=== PATIENT | female | born 1990 | race Caucasian/White ===

== ENCOUNTER 2019-10-25 18:51 | Inpatient (IN) ==
[2019-10-25] MEDS ORDERED: ONDANSETRON 4 MG/2 ML VIAL IV PRN (19:02)
[2019-10-25] MEDS ORDERED: BUTORPHANOL 2 MG/ML VIAL IV PRN (19:04)
[2019-10-25 19:44] LABS: Basophils % 0.4 % (0.0-0.8); Eosinophils # 0.2 10*3/uL (0.0-0.87); Eosinophils % 1.8 % (0.00-10.9); Hematocrit 39.1 VOL% (35.7-47.0); Hemoglobin 12.7 GM/DL (12.0-16.0); Immature Granulocytes % 0.7 %; Immature Granulocytes Absolute 0.08 #; Lymphocytes # 2.3 10*3/uL (1.4-4.0); Lymphocytes % 20.7 % (21.3-54.2); Mean Corpuscular HGB Conc 32.5 GM/DL (32-36); Mean Corpuscular Volume 91.4 FL (87-102); Mean Platelet Volume 10.2 FL (9.6-12.0); Monocytes % 7.5 % (1.7-12.7); Neutrophils % 68.9 % (38.7-73.9); Platelet Count 293 T/CUMM (130-400); Red Blood Count 4.28 MC/CUMM (3.8-5.5); Red Cell Distribution Width 13.5 % (9.3-17.3); White Blood Count 11.1 T/CUMM (4-12)
[2019-10-25 20:03] LABS: Alanine Aminotransferase 23 U/L (13-56); Albumin 2.9 G/DL (3.4-5.0); Alkaline Phosphatase 184 U/L (45-117); Aspartate Amino Transferase 23 U/L (0-37); Bilirubin,Total < 0.39 MG/DL (0.2-1.0); Blood Urea Nitrogen 8 MG/DL (7-18); Calcium 8.9 MG/DL (8.5-10.1); Estimated Glom Filtration Rate 128 ML/MIN; Glucose 82 MG/DL (74-106); Osmolality,Calculated 266.1 MOS/KG (273-304); Total Protein 7.1 G/DL (6.4-8.3)
[2019-10-25] MEDS: LACTATED RINGERS 1,000 ML IV SCH (20:14)
[2019-10-26] MEDS: LACTATED RINGERS 1,000 ML IV SCH (01:40)
[2019-10-26] MEDS: MEPERIDINE 50 MG/1 ML VIAL IV PRN ×2 (02:25→05:50)
[2019-10-26] MEDS ORDERED: OXYTOCIN/LR 20 UNIT/1,000 ML BAG IV SCH (04:00)
[2019-10-26] MEDS ORDERED: ACETAMINOPHEN 500 MG TABLET PO PRN (04:10)
[2019-10-26] MEDS ORDERED: ONDANSETRON 4 MG/2 ML VIAL IV ONE (07:37)
[2019-10-26] MEDS ORDERED: LACTATED RINGERS 1,000 ML IV ONE (07:37)
[2019-10-26] MEDS ORDERED: CITRIC ACID/SODIUM CITRATE 30 ML UDCUP PO ONE (07:37)
[2019-10-26] MEDS ORDERED: ePHEDrine 50 MG/ML AMP IV PRN (07:37)
[2019-10-26] MEDS ORDERED: NALOXONE 0.4 MG/ML VIAL IV PRN (07:37)
[2019-10-26] MEDS ORDERED: diphenhydrAMINE 50 MG/1 ML VIAL IV PRN ×2 (07:37)
[2019-10-26] MEDS ORDERED: FAMOTIDINE 20 MG/2 ML VIAL IV ONE (07:37)
[2019-10-26] MEDS ORDERED: fentaNYL 2 MCG/ROPIV 0.2% EPID 100 ML EPIDURAL SCH (08:00)
[2019-10-26 09:12] LABS: Apearance,Urine CLEAR (Clear); Bilirubin,Urine Negative (Negative); Blood, Urine Negative (Negative); Glucose,Urine (UA) Negative (Negative); Ketones,Urine 5 mg/dL (Negative); Nitrite,Urine Negative (Negative); Protein,Urine Negative; RBC,Urine <1 /HPF (0-4); Urine Color Yellow (Yellow); Urine Specific Gravity 1.011 (1.001-1.035); Urine Urobilinogen < 2.0 EU/DL (0.2-1.0); WBC,Urine <1 /HPF (0-6)
[2019-10-26] MEDS ORDERED: miSOPROStoL 200 MCG TABLET ONE (13:23)
[2019-10-26] MEDS ORDERED: METHYLERGONOVINE 0.2 MG/1 ML AMP ONE (13:24)
[2019-10-26 14:10] LABS: Cord Arterial Blood HCO3 24.5 MMOL/L
[2019-10-26 14:12] LABS: Cord Venous Blood PCO2 45.2 MMHG
[2019-10-26] MEDS ORDERED: HYDROCORTISONE 2.5% RECTAL CREAM 30 GM TUBE TOP PRN (14:18)
[2019-10-26] MEDS ORDERED: DIPH/TET/ACEL PERT BOOSTER VACCINE 0.5 ML VIAL IM ONE (14:18)
[2019-10-26] MEDS ORDERED: RHO(D) IMMUNE GLOBULIN 300 MCG SYRINGE IM ONE (14:18)
[2019-10-26] MEDS ORDERED: WITCH HAZEL PADS 100/JAR TOP PRN (14:18)
[2019-10-26] MEDS ORDERED: LANOLIN 50% CREAM 0.3 OZ TUBE TOP PRN (14:18)
[2019-10-26] MEDS ORDERED: oxyCODONE/ACETAMINOPHEN 5-325 MG TABLET PO PRN ×2 (14:18)
[2019-10-26] MEDS ORDERED: OXYTOCIN/LR 20 UNIT/1,000 ML BAG IV ONE (14:18)
[2019-10-26] MEDS ORDERED: ACETAMINOPHEN 325 MG TABLET PO PRN (14:18)
[2019-10-26] MEDS ORDERED: BENZOCAINE 20%/MENTHOL 0.5% SPRAY 56 GM CAN TOP PRN (14:18)
[2019-10-26] MEDS ORDERED: ONDANSETRON 4 MG/2 ML VIAL IV PRN (14:18)
[2019-10-26] MEDS ORDERED: MEASLES/MUMPS/RUBELLA VACCINE 0.5 ML VIAL SUBCUT ONE (14:18)
[2019-10-26] MEDS ORDERED: BISACODYL 10 MG SUPP RECTAL PRN (14:18)
[2019-10-26] MEDS: IBUPROFEN 800 MG TABLET PO PRN (17:46)
[2019-10-26] MEDS: DOCUSATE SODIUM 100 MG CAPSULE PO SCH (20:57)
[2019-10-26] MEDS: oxyCODONE/ACETAMINOPHEN 5-325 MG TABLET PO PRN (20:58)
[2019-10-27] MEDS: IBUPROFEN 800 MG TABLET PO PRN ×4 (00:08→19:39)
[2019-10-27] MEDS: oxyCODONE/ACETAMINOPHEN 5-325 MG TABLET PO PRN ×4 (05:43→23:46)
[2019-10-27 07:06] LABS: Basophils # 0.1 10*3/uL (0.0-0.2); Basophils % 0.4 % (0.0-0.8); Eosinophils # 0.1 10*3/uL (0.0-0.87); Eosinophils % 0.8 % (0.00-10.9); Hematocrit 34.6 VOL% (35.7-47.0); Immature Granulocytes % 0.8 %; Immature Granulocytes Absolute 0.14 #; Lymphocytes # 2.1 10*3/uL (1.4-4.0); Lymphocytes % 12.2 % (21.3-54.2); Mean Corpuscular HGB Conc 31.8 GM/DL (32-36); Mean Corpuscular Volume 93.5 FL (87-102); Monocytes % 7.6 % (1.7-12.7); Neutrophils % 78.2 % (38.7-73.9); Platelet Count 207 T/CUMM (130-400); Red Cell Distribution Width 13.9 % (9.3-17.3); White Blood Count 17.1 T/CUMM (4-12)
[2019-10-27] MEDS: DOCUSATE SODIUM 100 MG CAPSULE PO SCH ×2 (09:30→20:26)
[2019-10-28] MEDS: oxyCODONE/ACETAMINOPHEN 5-325 MG TABLET PO PRN ×2 (03:45→07:55)
[2019-10-28] MEDS: IBUPROFEN 800 MG TABLET PO PRN (03:45)
[2019-10-28 07:27] VITALS: BP 113/63
[2019-10-28] MEDS: DOCUSATE SODIUM 100 MG CAPSULE PO SCH (09:15)
== END 2019-10-28 11:50 | disposition home or self-care (01) | DRG 768 ==
LOC: N.LDOUT 18:51 → N.LD 18:52 → N.OB 10-26 16:58
PROVIDERS: ADMIT Obstetrics & Gynecology; ATTEND Obstetrics & Gynecology